=== PATIENT | male | born 1985 | race Caucasian/White ===

== ENCOUNTER 2019-03-29 11:01 | Emergency (ER) | payer MEDICAID ==
[~2019-03-29] VITALS: Ht 165.1 cm; Wt 94.7 kg
[2019-03-29 11:13] VITALS: Ht 165.1 cm; Wt 94.7 kg
[2019-03-29] MEDS ORDERED: LIDOCAINE 1% (MDV) 20 ML INJ SC ONE (12:00)
[2019-03-29] MEDS ORDERED: DIPHTH/TET/ACEL PERTUSS (ADULT) 0.5 ML VIAL IM* ONE (12:00)
[2019-03-29] MEDS ORDERED: CEFAZOLIN 1 GM INJ IM ONE (13:30)
[2019-03-29] MEDS ORDERED: CEPH-443 PO (13:34)
[2019-03-29] MEDS ORDERED: NAPR-985 PO (13:34)
[2019-03-29] MEDS ORDERED: HYDR-4011 PO (13:34)
--- NOTE | 2019-03-29 13:39 | ERD ---
ER Documentation Chief Complaint Chief Complaint laceration with saw right lower leg, bleeding control HPI 33-year-old male presenting with a laceration to his right lower leg. It was coming with a fall earlier today and it kicked back and hit him in the right lower leg. He does not recall his last tetanus shot. Denies any numbness or tingling. Has mild pain at the site. Has not done anything to the wound since the injury occurred 30 minutes ago. Denies any medical problems. NKDA. Surgical history denies. Social history denies ROS All systems reviewed and are negative except as per history of present illness. Medications Home Meds Active Scripts Naproxen* (Naprosyn*) 500 Mg Tablet, 500 MG PO BID PRN for PAIN AND/OR INFLAMMATION, #30 TAB Prov:NOÉ CHAVEZ PA-C 03/29/19 Hydrocodone/Acetaminophen ([place] 5-325 Tablet) 1 Each Tablet, 1 TAB PO Q6H PRN for PAIN, #7 TAB Prov:NOÉ CHAVEZ PA-C 03/29/19 Cephalexin* (Keflex*) 500 Mg Capsule, 500 MG PO QID for 7 Days, CAP Prov:NOÉ CHAVEZ PA-C 03/29/19 Allergies Allergies: Coded Allergies: No Known Allergy (Unverified , 03/29/19) PMhx/Soc Medical and Surgical Hx: pt denies Medical Hx, pt denies Surgical Hx Hx Alcohol Use: No Hx Substance Use: No Hx Tobacco Use: No Smoking Status: Never smoker FmHx Family History: No diabetes, No coronary disease, No other Physical Exam Vitals Vital Signs Date Temp Pulse Resp B/P (MAP) Pulse Ox O2 O2 Flow FiO2 Time Delivery Rate 03/29/19 98.4 83 18 141/77 97 11:13 (98) Physical Exam GENERAL: The patient is well-appearing, well-nourished, in no acute distress CHEST: Clear to auscultation bilaterally. There are no rales, wheezes or rhonchi. HEART: Regular rate and rhythm. No murmurs, clicks, rubs or gallops. EXTREMITIES: Equal pulses bilaterally. There is no peripheral clubbing, cyanosis or edema. No focal swelling or erythema. Full range of motion. NEUROLOGIC: Alert and oriented. Cranial nerves II through XII intact. Motor strength in all 4 extremities with 5 out of 5 strength. Sensation grossly intact. Normal speech and gait. SKIN: 3 cm linear laceration noted over the mid tibia. No active bleeding. No foreign body. Results 24 hrs Current Medications Medications Dose Sig/Kalee Start Time Status Last (Trade) Ordered Route PRN Stop Time Admin Dose Reason Admin Diphtheria/ 0.5 ml ONCE ONCE 03/29/19 DC 03/29/19 Tetanus/Acell IM* 12:00 12:22 Pertussis 03/29/19 12:01 (Adacel) Lidocaine 20 ml ONCE ONCE 03/29/19 DC (Xylocaine SC 12:00 1% (Mdv) 20 03/29/19 12:01 ml) Cefazolin 1 gm ONCE ONCE 03/29/19 DC 03/29/19 Sodium IM 13:30 13:17 (Ancef) 03/29/19 13:31 Procedures/MDM DIAGNOSTIC IMAGING REPORT Patient: JEFF LOVE : 1985 Age: 33 Sex: M MR #: [id number] DOS: 03/29/19 1151 Ordering MD: MONO CHAVEZ PA-C Location: [facility] Room/Bed: PROCEDURE: XR tibia and fibula CLINICAL INDICATION: Laceration TECHNIQUE: AP and lateral views of the right tibia and fibula COMPARISON: None FINDINGS: Distal most tibia and fibula not in field of view on lateral image. Mineralization is intact. Focal incomplete cortical defect in the medial mid/proximal tibia with small adjacent osseous fragments. Lucency within the soft tissues in this region compatible with laceration. No definite radiopaque foreign body. IMPRESSION: Focal incomplete cortical defect in the medial mid/proximal tibia with small adjacent osseous fragments. Lucency within the soft tissues in this region compatible with laceration. No definite radiopaque foreign body. ER course: Ancef given in the ED. Tdap given in ED. Laceration Repair by me: Anesthesia: 1% lidocaine locally Location: Right tibia Tendon/Joint/Nerves: No injury Foreign body: None detected after copious irrigation and exploration Technique: 5 4.0 Simple Interrupted Sutures Complexity: No subcutaneous sutures/mucosal repair/edge excision Post Closure Length: 3 cm Patient's bleeding was easily controlled in the department and there is no indication of anemia. No evidence of compartment syndrome, neurologic injury, vascular injury, open joint, tendon laceration, or foreign body. Patient is appropriate for outpatient follow up. 48 hour wound check. Scar minimization instructions given. MDM: 33-year-old male presenting with laceration to the lower leg. Suspicion for retained foreign body. I have low for tendon or ligament injury. Patient does have a cortical defect seen on x-ray so we will treat for possible open fracture. Patient is discharged with antibiotics and pain medication. Patient is recommended to return in 2 days for wound check and have stitches removed within 7 days. Patient is discharged with strict ER precautions. All questions answered at discharge Departure Diagnosis: Primary Impression: Laceration Condition: Stable Patient Instructions: Laceration, All Referrals: [facility] YOU HAVE RECEIVED A MEDICAL SCREENING EXAM AND THE RESULTS INDICATE THAT YOU DO NOT HAVE A CONDITION THAT REQUIRES URGENT TREATMENT IN THE EMERGENCY DEPARTMENT. FURTHER EVALUATION AND TREATMENT OF YOUR CONDITION CAN WAIT UNTIL YOU ARE SEEN IN YOUR DOCTORS OFFICE WITHIN THE NEXT 1-2 DAYS. IT IS YOUR RESPONSIBILITY TO MAKE AN APPOINTMENT FOR FOLOW-UP CARE. IF YOU HAVE A PRIMARY DOCTOR --you should call your primary doctor and schedule an appointment IF YOU DO NOT HAVE A PRIMARY DOCTOR YOU CAN CALL OUR PHYSICIAN REFERRAL HOTLINE AT IF YOU CAN NOT AFFORD TO SEE A PHYSICIAN YOU CAN CHOSE FROM THE FOLLOWING [facility] [address] [facility] [place] [facility] [address] [facility]. [facility] [address] [facility]. [facility] [address] [facility]. [facility] [address] [facility]. [facility]. [address] Additional Instructions: FOLLOW UP WITH YOUR PRIMARY CARE PHYSICIAN TOMORROW.Return to this facility if you are not improving as expected. NOÉ CHAVEZ PA-C Mar 29, 2019 13:39
[2019-03-29 14:27] VITALS: BP 138/73; PULSE 87; RESP 20
== END 2019-03-29 14:30 | disposition home or self-care (01) ==
LOC: FTE 11:01
DX: S81.811A Laceration without foreign body, right lower leg, initial encounter (principal); W31.1XXA Contact with metalworking machines, initial encounter; Y92.9 Unspecified place or not applicable; Z23 Encounter for immunization
CPT/HCPCS: 12002; 73590; 90471; 90715; 96372; J0690; Z7502; Z7610

== ENCOUNTER 2019-03-31 09:46 | Emergency (ER) | payer MEDICAID ==
[~2019-03-31] VITALS: Ht 175.3 cm; Wt 93.5 kg
[~2019-03-31 09:46] MED LIST: CEPH-443 PO; HYDR-4011 PO; NAPR-985 PO
[2019-03-31 09:52] VITALS: BP 146/67; PULSE 80; RESP 18; Ht 175.3 cm; Wt 93.5 kg
--- NOTE | 2019-03-31 10:32 | ERD ---
ER Documentation Chief Complaint Chief Complaint 2 day Wound/suture recheck HPI 33-year-old male presenting for wound check. Patient had sutures placed 2 days ago on his right lower leg. Denies any pain. Is taking antibiotics as there was an injury to the bone. NKDA. Surgical history denies. Social history den ies ROS All systems reviewed and are negative except as per history of present illness. Medications Home Meds Active Scripts Naproxen* (Naprosyn*) 500 Mg Tablet, 500 MG PO BID PRN for PAIN AND/OR INFLA MMATION, #30 TAB Prov:NOÉ CHAVEZ PA-C 03/29/19 Hydrocodone/Acetaminophen ([place] 5-325 Tablet) 1 Each Tablet, 1 TAB PO Q6H PRN for PAIN, #7 TAB Prov:NOÉ CHAVEZ PA-C 03/29/19 Cephalexin* (Keflex*) 500 Mg Capsule, 500 MG PO QID for 7 Days, CAP Prov:NOÉ CHAVEZ PA-C 03/29/19 Allergies Allergies: Coded Allergies: No Known Allergy (Unverified , 03/29/19) PMhx/Soc Medical and Surgical Hx: pt denies Medical Hx, pt denies Surgical Hx Hx Alcohol Use: No Hx Substance Use: No Hx Tobacco Use: No Smoking Status: Never smoker FmHx Family History: No diabetes, No coronary disease, No other Physical Exam Vitals Vital Signs Date Temp Pulse Resp B/P (MAP) Pulse Ox O2 O2 Flow FiO2 Time Delivery Rate 03/31/19 97.8 80 18 146/67 97 09:52 (93) Physical Exam GENERAL: The patient is well-appearing, well-nourished, in no acute distress CHEST: Clear to auscultation bilaterally. There are no rales, wheezes or rhonchi. HEART: Regular rate and rhythm. No murmurs, clicks, rubs or gallops. EXTREMITIES: Equal pulses bilaterally. There is no peripheral clubbing, cyanosis or edema. No focal swelling or erythema. Full range of motion. Grossly neurovascularly intact. NEUROLOGIC: Alert and oriented. Cranial nerves II through XII intact. Motor strength in all 4 extremities with 5 out of 5 strength. Sensation grossly intact. Normal speech and gait. SKIN: Sutures intact and wound healing appropriately. No dehiscence of the wound. No surrounding erythema or fluctuance. Procedures/MDM MDM: 33-year-old male presenting for wound check. Patient's wound is healing appropriately. Patient is told to return in 5 days and have sutures removed at that time. She was told if symptoms change or worsen to return immediately to the ER. He is told to continue taking antibiotics. All questions answered at discharge Departure Diagnosis: Primary Impression: Encounter for wound re-check Condition: Stable Patient Instructions: Wound Check, Lac F/U (No Infection) Referrals: [facility] YOU HAVE RECEIVED A MEDICAL SCREENING EXAM AND THE RESULTS INDICATE THAT YOU DO NOT HAVE A CONDITION THAT REQUIRES URGENT TREATMENT IN THE EMERGENCY DEPARTMENT. FURTHER EVALUATION AND TREATMENT OF YOUR CONDITION CAN WAIT UNTIL YOU ARE SEEN IN YOUR DOCTORS OFFICE WITHIN THE NEXT 1-2 DAYS. IT IS YOUR RESPONSIBILITY TO MAKE AN APPOINTMENT FOR FOLOW-UP CARE. IF YOU HAVE A PRIMARY DOCTOR --you should call your primary doctor and schedule an appointment IF YOU DO NOT HAVE A PRIMARY DOCTOR YOU CAN CALL OUR PHYSICIAN REFERRAL HOTLINE AT IF YOU CAN NOT AFFORD TO SEE A PHYSICIAN YOU CAN CHOSE FROM THE FOLLOWING [facility] [address] [facility]. [facility] [address] [facility] [facility] [address] [facility]. [facility] [address] [facility]. [facility] [address] [facility]. [facility]. [address] Additional Instructions: FOLLOW UP WITH YOUR PRIMARY CARE PHYSICIAN TOMORROW.Return to this facility if you are not improving as expected. NOÉ CHAVEZ PA-C Mar 31, 2019 10:32
== END 2019-03-31 11:01 | disposition home or self-care (01) ==
LOC: FTE 09:46
DX: Z48.00 Encounter for change or removal of nonsurgical wound dressing (principal)
CPT/HCPCS: 99281

== ENCOUNTER 2019-04-05 10:08 | Emergency (ER) | payer MEDICAID ==
[~2019-04-05] VITALS: Ht 170.2 cm; Wt 94.3 kg
[2019-04-05 10:17] VITALS: BP 136/92; PULSE 78; RESP 18; Ht 170.2 cm; Wt 94.3 kg
--- NOTE | 2019-04-05 14:14 | ERD ---
ER Documentation Chief Complaint Chief Complaint SUTURE REMOVAL AFTER 7 DAYS HPI 33-year-old male presenting with suture removal to the left trejo. Patient sutures placed after he cut himself with a saw 1 week ago. Denies any severe pain. Denies any purulence. Denies other medical problems. NKDA. Surgical history denies. Social history denies ROS All systems reviewed and are negative except as per history of present illness. Medications Home Meds Active Scripts Naproxen* (Naprosyn*) 500 Mg Tablet, 500 MG PO BID PRN for PAIN AND/OR INFLAMMATION, #30 TAB Prov:NOÉ CHAVEZ PA-C 03/29/19 Hydrocodone/Acetaminophen ([place] 5-325 Tablet) 1 Each Tablet, 1 TAB PO Q6H PRN for PAIN, #7 TAB Prov:NOÉ CHAVEZ PA-C 03/29/19 Cephalexin* (Keflex*) 500 Mg Capsule, 500 MG PO QID for 7 Days, CAP Prov:NOÉ CHAVEZ PA-C 03/29/19 Allergies Allergies: Coded Allergies: No Known Allergy (Unverified , 03/29/19) PMhx/Soc Hx Alcohol Use: No Hx Substance Use: No Hx Tobacco Use: No Smoking Status: Never smoker FmHx Family History: No diabetes, No coronary disease, No other Physical Exam Vitals Vital Signs Date Temp Pulse Resp B/P (MAP) Pulse Ox O2 O2 Flow FiO2 Time Delivery Rate 04/05/19 97.6 78 18 136/92 97 10:17 (107) Physical Exam GENERAL: The patient is well-appearing, well-nourished, in no acute distress CHEST: Clear to auscultation bilaterally. There are no rales, wheezes or rhonchi. HEART: Regular rate and rhythm. No murmurs, clicks, rubs or gallops EXTREMITIES: Equal pulses bilaterally. There is no peripheral clubbing, cyanosis or edema. No focal swelling or erythema. Full range of motion. NEUROLOGIC: Alert and oriented. Cranial nerves II through XII intact. Motor strength in all 4 extremities with 5 out of 5 strength. Sensation grossly intact. SKIN: Healed suture laceration site noted to the left trejo. No surrounding erythema or dehiscence. No purulence. Procedures/MDM ER course: Sutures removed without complication. MDM: 33-year-old male presenting for suture removal. I have low suspicion for wound infection or dehiscence of the wound. Patient is discharged with strict ER precautions and told to follow-up with primary care within 1 to 2 days for close evaluation. Patient is told symptoms change or worsen to return immediately to the ER. All questions answered at discharge Departure Diagnosis: Primary Impression: Encounter for removal of sutures Condition: Stable Patient Instructions: Suture Removal, No Complication Referrals: [facility] YOU HAVE RECEIVED A MEDICAL SCREENING EXAM AND THE RESULTS INDICATE THAT YOU DO NOT HAVE A CONDITION THAT REQUIRES URGENT TREATMENT IN THE EMERGENCY DEPARTMENT. FURTHER EVALUATION AND TREATMENT OF YOUR CONDITION CAN WAIT UNTIL YOU ARE SEEN IN YOUR DOCTORS OFFICE WITHIN THE NEXT 1-2 DAYS. IT IS YOUR RESPONSIBILITY TO MAKE AN APPOINTMENT FOR FOLOW-UP CARE. IF YOU HAVE A PRIMARY DOCTOR --you should call your primary doctor and schedule an appointment IF YOU DO NOT HAVE A PRIMARY DOCTOR YOU CAN CALL OUR PHYSICIAN REFERRAL HOTLINE AT IF YOU CAN NOT AFFORD TO SEE A PHYSICIAN YOU CAN CHOSE FROM THE FOLLOWING [facility] [address] [facility]. [facility] [address] [facility] [address] [facility]. [facility] [address] [facility]. [facility] [address] [facility]. [facility]. [address] Additional Instructions: Call your primary care doctor TOMORROW for an appointment during the next 1-2 days.See the doctor sooner or return here if your condition worsens before your appointment time. NOÉ CHAVEZ PA-C Apr 05, 2019 14:14
== END 2019-04-05 11:11 | disposition home or self-care (01) ==
LOC: FTE 10:08
DX: Z48.02 Encounter for removal of sutures (principal)
CPT/HCPCS: 99281